=== PATIENT | male | born 1990 | race Caucasian/White ===

== ENCOUNTER 2016-04-02 18:33 | Emergency (ER) | payer BC ==
[~2016-04-02] VITALS: Ht 175.3 cm; Wt 71.6 kg
[2016-04-02 18:36] VITALS: TEMP 36.8; Ht 175.3 cm; Wt 71.6 kg
--- NOTE | 2016-04-02 21:09 | EMERGENCY ROOM VISIT NOTE ---
History Report prepared by Benji: Martínez Ramírez Under the Supervision of: Dr. Yvon Oivedo M.D. First contact with patient: 20:30 Chief Complaint: SYNCOPE (NEAR SYNCOPE) Stated Complaint: SYNCOPE, FACIAL PAIN Nursing Triage Summary: Dizzy, lightheaded, shaky that started over the weekend. Denies N/V/D. History of Present Illness The patient is a 25 year old male who presents to the Emergency Room with complaints of constant left sided dental pain occurring earlier this week. He states that he has had a headache and intermittent nausea as well. He notes that he began feeling dizzy today. The patient's girlfriend notes that the patient has been having intermittent episodes of "sweating and feeling very hot ". The patient denies any abdominal pain, vomiting, fevers, chest pain, or SOB. 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 He feels that his tooth is infected, and states that he has not been able to get in touch with his dentist during the past week. The patient states that he had a lot of shakiness along with his dizziness. Source of History: patient, spouse/significant other (girlfriend) Onset: earlier this week Position: teeth (left side) Timing: constant Associated Symptoms: + headache, + nausea (intermittent), No SOB, No abdominal pain, No chest pain, No fevers, No vomiting Note: The patient has associated dizziness beginning today. Review of Systems See HPI for pertinent positives & negatives. A total of 10 systems reviewed and were otherwise negative. Past Medical & Surgical Medical Problems: (1) Contact dermatitis due to poison oak Old medical records were attempted to be reviewed but there are no old records at this hospital. Nurse's notes were reviewed and I agree with. Family History Patient reports no known family medical history. Social History Smoking Status: Current Every Day Smoker Marital Status: in relationship Housing Status: lives with significant other Occupation Status: employed Current/Historical Medications Scheduled Amoxicillin & Pot Clavulanate (Augmentin 875-125 mg), 875 MG PO BID Allergies Coded Allergies: No Known Allergies (Unverified , 04/02/16) Physical Exam Vital Signs Date Time Temp Pulse Resp B/P Pulse Ox O2 Delivery O2 Flow Rate FiO2 04/03/16 00:08 62 20 145/71 98 04/02/16 23:58 62 04/02/16 23:30 51 20 129/91 97 Room Air 04/02/16 21:32 60 21 150/69 99 Room Air 04/02/16 20:38 75 04/02/16 20:28 64 16 140/96 98 Room Air 04/02/16 18:36 36.8 81 18 151/103 97 Room Air Physical Exam General: Well developed, well nourished, non-ill appearing young male in no acute distress, breathing comfortably on room air. Normal speech HEENT: Normal cephalic atraumatic. No tenderness over the mastoid. Pupils are equal round and reactive to light. Extraocular movements are intact. Left TM has an effusion. Right TM appears normal. Oropharynx is pink with moist mucous membranes. No swelling of the mouth lips or tongue. Very poor dentition noted. Upper left molar with advanced cavity. No fluctuance. Neck: Supple with a midline trachea. No meningeal signs or stiffness, no JVD or bruits. No Stridor. Chest: Clear to auscultation bilaterally. No wheezes or rhonchi. No increased work of breathing. Heart: regular rate and rhythm. Abdomen: Soft nontender, nondistended without rebound guarding or rigidity. Extremities: No cyanosis clubbing or edema. No calf tenderness or assymetry Spine/Back. Non tender to palpation. No CVA tenderness Skin: Good turgor without rashes. Neurologic exam: Cranial nerves two through 12 are intact. Motor and sensation are intact and symmetrical throughout. Medical Decision & Procedures ER Provider Diagnostic Interpretation: CT results as stated below per my review and radiologist interpretation: MAXILLOFACIAL CT WITHOUT CONTRAST FINDINGS: No acute fracture is identified. There is mild mucosal thickening of the maxillary sinuses. Mastoid air cells are clear. Alignment of the temporomandibular joints is anatomic. There is no soft tissue gas within the face or visualized portions of the upper neck. The epiglottis is normal. Numerous teeth are absent. There are multiple dental amalgams as well as numerous dental caries. The sensitivity for detection of soft tissue abscesses is diminished on this unenhanced exam but none are identified. There is S-shaped deviation of the septum with spur formation. IMPRESSION: 1. Numerous dental caries. Sensitivity for detection of soft tissue abscesses is diminished on this unenhanced exam but none are identified. 2. No acute facial fracture. 3. Mild polypoid mucosal thickening of the maxillary sinuses. Electronically signed by: Naveed James M.D. CT OF THE HEAD WITHOUT CONTRAST FINDINGS: No acute intracranial hemorrhage, midline shift or mass effect is present. Ventricular system is normal. The basilar cisterns are patent. There are no extra-axial collections. Meléndez-white differentiation is maintained. There are no findings to suggest acute dural sinus thrombosis or acute territorial infarct. There are no calvarial fractures. Visualized portions of the sinuses and mastoid air cells are clear. IMPRESSION: No acute intracranial findings. Electronically signed by: Naveed James M.D. Laboratory Results 04/02/16 21:00 Red Blood Count 5.59, Mean Corpuscular Volume 82.8, Mean Corpuscular Hemoglobin 29.9, Mean Corpuscular Hemoglobin Concent 36.1, Mean Platelet Volume 12.4, Neutrophils (%) (Auto) 54.7, Lymphocytes (%) (Auto) 34.3, Monocytes (%) (Auto) 9.0, Eosinophils (%) (Auto) 1.4, Basophils (%) (Auto) 0.3, Neutrophils # (Auto) 5.70, Lymphocytes # (Auto) 3.57, Monocytes # (Auto) 0.94, Eosinophils # (Auto) 0.15, Basophils # (Auto) 0.03 04/02/16 21:00 Test 04/02/16 21:00 04/02/16 21:08 White Blood Count 10.42 K/uL (4.8-10.8) Red Blood Count 5.59 M/uL (4.7-6.1) Hemoglobin 16.7 g/dL (14.0-18.0) Hematocrit 46.3 % (42-52) Mean Corpuscular Volume 82.8 fL (80-100) Mean Corpuscular Hemoglobin 29.9 pg (25-34) Mean Corpuscular Hemoglobin Concent 36.1 g/dl (32-36) Platelet Count 139 K/uL (130-400) Mean Platelet Volume 12.4 fL (7.4-10.4) Neutrophils (%) (Auto) 54.7 % Lymphocytes (%) (Auto) 34.3 % Monocytes (%) (Auto) 9.0 % Eosinophils (%) (Auto) 1.4 % Basophils (%) (Auto) 0.3 % Neutrophils # (Auto) 5.70 K/uL (1.4-6.5) Lymphocytes # (Auto) 3.57 K/uL (1.2-3.4) Monocytes # (Auto) 0.94 K/uL (0.11-0.59) Eosinophils # (Auto) 0.15 K/uL (0-0.5) Basophils # (Auto) 0.03 K/uL (0-0.2) RDW Standard Deviation 39.9 fL (36.4-46.3) RDW Coefficient of Variation 13.2 % (11.5-14.5) Immature Granulocyte % (Auto) 0.3 % Immature Granulocyte # (Auto) 0.03 K/uL (0.00-0.02) Anion Gap 11.0 mmol/L (3-11) Est Creatinine Clear Calc Drug Dose 114.3 ml/min Estimated GFR () 122.8 Estimated GFR (Non- 106.0 BUN/Creatinine Ratio 7.4 (10-20) Calcium Level 9.0 mg/dl (8.5-10.1) Bedside Troponin I 0.010 ng/ml (0-0.045) Laboratory studies as stated above per my review. Medications Administered Medications (Trade) Dose Ordered Sig/Tony Route Start Time Stop Time Status Last Admin Dose Admin Oxycodone HCl (Roxicodone Immediate Rel 5MG Home Pack) 1 homepack UD ONCE PO 04/03/16 00:00 04/03/16 00:01 DC 04/03/16 00:04 1 HOMEPACK Amoxicillin/ Clavulanate Potassium (Augmentin 875MG Home Pack) 1 homepack STK-MED ONCE PO 04/02/16 23:56 04/02/16 23:57 DC 04/03/16 00:04 1 HOMEPACK ECG Indication: other (dizziness) Rate (beats per minute): 59 Rhythm: sinus bradycardia Findings: RBBB (incomplete), no acute ischemic change ED Course 2030: Past medical records reviewed. The patient was evaluated in room B2, and a complete history and physical examination were performed. 5: Upon reevaluation, the patient is resting comfortably. I discussed the results and treatment plan with him. He verbalized agreement of the treatment plan. 2356: Ordered Augmentin 875 mg home pack PO. 0000: Ordered Roxicodone Immediate Rel 5 mg home pack PO, Augmentin Tab 875 mg PO. The patient was discharged home. Medical Decision Differentials include, but are not limited to; dental caries, dental abscess, arrhythmia, intracranial process, electrolyte or metabolic abnormality and infection. This patient comes in as described above. He's had a toothache in his left upper jaw, he has very poor dentition. he's been trying a with this dentist but has not been able to yet. He felt like he had a little bit of dizziness as well as had a headache over the weekend. On exam, he has a normal neurologic exam. He is afebrile He has no visible facial swelling the floor of his mouth is soft and has no Chema's angina. His left tympanic membrane does have some effusion behind it. He has no tenderness over the mastoid. He has no meningeal signs or stiffness. IV access established blood work was obtained CAT scan of his head and face was obtained. There is no acute intracranial process and he has no large abscess seen. His white count is not minimally elevated. He has no significant electrolytes or metabolic abnormalities. EKG does not suggest acute coronary syndrome or significant arrhythmia. He was given Augmentin 875 mg by mouth and home pack as well as a prescription. For pain use ibuprofen 600 mg every 6 hours. She was given home pack of OxyIR 5 mg that he is 1-2 pills every 4 hours as needed . he was warned this can make him drowsy and do not take before drinking, driving, working. follow-up with his dentist in the morning and will likely need this tooth and several others pulled. He can get further pain medication from his dentist. The patient and his friends were happy with the plan and he was discharged to home. Impression Primary Impression: Dizziness Additional Impressions: Tooth ache, Dental caries Scribe Attestation The scribe's documentation has been prepared under my direction and personally reviewed by me in its entirety. I confirm that the note above accurately reflects all work, treatment, procedures, and medical decision making performed by me. Departure Information Dispostion Home / Self-Care Prescriptions Amoxicillin & Pot Clavulanate (Augmentin 875-125 mg) 1 Tab Tab 875 MG PO BID, #20 TAB Prov: Yvon Oviedo M.D. 04/02/16 Referrals No Doctor, Assigned (PCP) Forms HOME CARE DOCUMENTATION FORM, IMPORTANT VISIT INFORMATION Patient Instructions A Signature Page, [facility] Additional Instructions Rest. Drink plenty of fluids. Follow-up with your dentist tomorrow, you will need your tooth pulled. Use Augmentin 875 mg twice a day for 10 days totalantibiotic. Use ibuprofen 600 mg every 6 hours, take with food. For more severe pain, use OxyIR 5 mg, one or 2 pills every 4-6 hours as needed OxyIR may make you drowsy and do not take for drinking, driving, working. You need to wait at least 8 hours after taking before you can drive Return if: Increasing pain, facial swelling, fever or chills, chest pain, shortness of breath, any problems concerns.
[2016-04-02 21:19] LABS: BASO % 0.3 %; BASO ABS # 0.03 K/uL (0-0.2); COMPLETE YES; EOS % 1.4 %; HEMATOCRIT 46.3 % (42-52); IG% 0.3 %; LYMPH % 34.3 %; LYMPH ABS # 3.57 K/uL (1.2-3.4); MEAN CELL VOLUME 82.8 fL (80-100); MEAN CORPUSCULAR HEMOGLOBIN 29.9 pg (25-34); MEAN CORPUSCULAR HGB CONC 36.1 g/dl (32-36); MEAN PLATELET VOLUME 12.4 fL (7.4-10.4); NEUT % 54.7 %; PLATELET COUNT 139 K/uL (130-400); RED BLOOD COUNT 5.59 M/uL (4.7-6.1); WHITE BLOOD COUNT 10.42 K/uL (4.8-10.8)
[2016-04-02 21:38] LABS: BUN/CREATININE RATIO 7.4 (10-20); CREATININE 0.98 mg/dl (0.60-1.40); POTASSIUM 3.8 mmol/L (3.5-5.1)
--- NOTE | 2016-04-02 21:40 | DIAGNOSTIC IMAGING REPORT ---
CT OF THE HEAD WITHOUT CONTRAST CLINICAL HISTORY: Left-sided headache. Dizziness. Syncope. COMPARISON STUDY: No previous studies for comparison. CT DOSE: 759.24 mGy.cm TECHNIQUE: Helical axial images of the head were obtained without IV contrast. Automated exposure control was utilized for the study. FINDINGS: No acute intracranial hemorrhage, midline shift or mass effect is present. Ventricular system is normal. The basilar cisterns are patent. There are no extra-axial collections. Meléndez-white differentiation is maintained. There are no findings to suggest acute dural sinus thrombosis or acute territorial infarct. There are no calvarial fractures. Visualized portions of the sinuses and mastoid air cells are clear. IMPRESSION: No acute intracranial findings. Electronically signed by: Naveed James M.D. 04/02/2016 9:38 PM
--- NOTE | 2016-04-02 22:25 | DIAGNOSTIC IMAGING REPORT ---
MAXILLOFACIAL CT WITHOUT CONTRAST CLINICAL HISTORY: Facial pain. Evaluate for dental abscess. COMPARISON STUDY: None. TECHNIQUE: A maxillofacial CT was performed without IV contrast. Coronal and sagittal reformats were viewed. FINDINGS: No acute fracture is identified. There is mild mucosal thickening of the maxillary sinuses. Mastoid air cells are clear. Alignment of the temporomandibular joints is anatomic. There is no soft tissue gas within the face or visualized portions of the upper neck. The epiglottis is normal. Numerous teeth are absent. There are multiple dental amalgams as well as numerous dental caries. The sensitivity for detection of soft tissue abscesses is diminished on this unenhanced exam but none are identified. There is S-shaped deviation of the septum with spur formation. IMPRESSION: 1. Numerous dental caries. Sensitivity for detection of soft tissue abscesses is diminished on this unenhanced exam but none are identified. 2. No acute facial fracture. 3. Mild polypoid mucosal thickening of the maxillary sinuses. Electronically signed by: Naveed James M.D. 04/02/2016 10:23 PM
[2016-04-02] MEDS ORDERED: AMOX875T PO (23:54)
[2016-04-02] MEDS ORDERED: AMOXICIL/CLAVU 875MG HOME PACK PO ONE (23:56)
[2016-04-03] MEDS ORDERED: OXYCODONE IR HOME PACK PO ONE
[2016-04-03 00:08] VITALS: BP 145/71; PULSE 62; O2SAT 98
[2016-04-03] MEDS ORDERED: AMOXICILLIN/CLAVULANATE TAB 875 MG TAB PO ONE (09:00)
== END 2016-04-03 00:09 | disposition home or self-care (01) ==
LOC: C.EDB 18:36
DX: R42 Dizziness and giddiness (principal); K02.9 Dental caries, unspecified; K08.89 Other specified disorders of teeth and supporting structures; F17.200 Nicotine dependence, unspecified, uncomplicated